=== PATIENT | female | born 1980 | race African-American/Black ===

== ENCOUNTER 2019-08-27 21:32 | Emergency (ER) | payer MEDICAID ==
[~2019-08-27] VITALS: Ht 167.6 cm; Wt 96.0 kg
[2019-08-27] MEDS ORDERED: MORPHINE SULFATE 4 MG/ML CPJ (NOT FOR IM USE) IV STA (21:55)
[2019-08-27] MEDS ORDERED: SODIUM CHLORIDE 0.9% 1,000 ML IV ONE (21:55)
[2019-08-27] MEDS ORDERED: ONDANSETRON HCL 4MG/2ML INJ IV STA (21:55)
[2019-08-27 23:06] LABS: BASOPHILS % 0.4 % (0.0-2.0); EOSINOPHILS % 0.1 % (0.0-5.0); HEMATOCRIT. 38.9 % (36.0-48.0); HEMOGLOBIN. 13.3 g/dL (12.0-16.0); LYMPHOCYTES % 17.2 % (20.0-50.0); MEAN CORPUSCULAR HEMOGLOBIN 30.4 pg (28.0-32.0); MEAN CORPUSCULAR VOLUME 89.2 fL (81.0-99.0); MEAN PLATELET VOLUME 11.2 fl (7.4-10.4); MONOCYTES % 2.8 % (2.0-8.0); NEUTROPHILS % 79.5 % (40.0-76.0); PLATELET 190 x1000/uL (130-400); RED BLOOD CELL COUNT 4.36 mill/uL (4.2-5.4); RED CELL DISTRIBUTION WIDTH 14.3 % (11.6-14.6)
[2019-08-27 23:10] LABS: CHLORIDE 122 mEq/L (98-107)
[2019-08-27] MEDS ORDERED: METOCLOPRAMIDE HCL 10MG/2ML VIAL IV ONE (23:45)
[2019-08-28] MEDS ORDERED: MORPHINE SULFATE 4 MG/ML CPJ (NOT FOR IM USE) IV ONE (00:45)
[2019-08-28 00:55] LABS: CLARITY URINE CLOUDY (CLEAR); COLOR URINE YELLOW (YELLOW); KETONES URINE 1+ (NEGATIVE); LEUKOCYTE ESTERASE URINE NEGATIVE (NEGATIVE); NITRITE URINE NEGATIVE (NEGATIVE); OCCULT BLOOD URINE NEGATIVE (NEGATIVE); PH URINE >=9.0 (4.5-8.0); PROTEIN URINE 1+ (NEGATIVE); SPECIFIC GRAVITY URINE 1.023 (1.005-1.030)
[2019-08-28 01:02] LABS: HCG SCREEN NEGATIVE
[2019-08-28] MEDS ORDERED: ONDANSETRON HCL 4MG/2ML INJ IV PRN (05:36)
[2019-08-28 10:52] VITALS: BP 122/69
== END 2019-08-28 11:18 | disposition left against medical advice (07) ==
LOC: ER 21:32 → EDBEDREQ 08-28 00:40 → EDBEDREQTM 08-28 00:40 → ER 08-28 11:18 → CANBEDREQ 08-28 16:09
DX: E11.43 Type 2 diabetes mellitus with diabetic autonomic (poly)neuropathy (principal); K31.84 Gastroparesis; E87.2 Acidosis; F12.10 Cannabis abuse, uncomplicated; Z88.0 Allergy status to penicillin
CPT/HCPCS: 36415; 80053; 81003; 83605; 83690; 84703; 85025; 85610; 96361; 96374; 96375; 96376; 99285; J2270; J2405; J2765; J7030

== ENCOUNTER 2024-07-12 06:58 | Emergency (ER) | payer MEDICAID ==
[~2024-07-12] VITALS: Ht 165.1 cm; Wt 68.0 kg
[2024-07-12 07:00] VITALS: BP 106/66; PULSE 63; RESP 14; TEMP 36.7; O2SAT 100
== END 2024-07-12 07:14 | disposition left against medical advice (07) ==
LOC: ER 06:58
DX: R10.84 Generalized abdominal pain (principal); Z53.21 Procedure and treatment not carried out due to patient leaving prior to being seen by health care provider

== ENCOUNTER 2024-07-20 16:34 | Emergency (ER) | payer MEDICAID, OTHER ==
[~2024-07-20] VITALS: Ht 167.6 cm; Wt 70.0 kg
[2024-07-20 16:35] VITALS: BP 121/60; PULSE 92; RESP 18; TEMP 36.9; O2SAT 99
== END 2024-07-20 17:39 | disposition left against medical advice (07) ==
LOC: ER 16:34
DX: R10.9 Unspecified abdominal pain (principal); Z53.21 Procedure and treatment not carried out due to patient leaving prior to being seen by health care provider

== ENCOUNTER 2024-08-25 12:05 | Emergency (ER) | payer MEDICAID ==
[~2024-08-25] VITALS: Ht 165.1 cm; Wt 75.0 kg
[~2024-08-25 12:05] MED LIST: HYDR50TA40 MT; ONDA4TAB50 MT
[2024-08-25 12:14] VITALS: BP 99/54; PULSE 61; RESP 18; TEMP 36.7; O2SAT 100
[2024-08-25] MEDS ORDERED: ONDANSETRON 4MG ODT PO ONE (12:45)
[2024-08-25] MEDS ORDERED: MORPHINE SULFATE 4 MG/ML INJ (FOR IV/IM USE) IV ONE (12:45)
[2024-08-25] MEDS ORDERED: PANTOPRAZOLE SODIUM 40 MG/VIAL IV ONE (12:45)
[2024-08-25] MEDS ORDERED: METOCLOPRAMIDE HCL 10MG/2ML VIAL IV ONE (12:45)
[2024-08-25] MEDS ORDERED: SODIUM CHLORIDE 0.9% 1,000 ML IV ONE (12:45)
[2024-08-25] MEDS ORDERED: KETOROLAC 15MG/ML VIAL IV ONE (12:45)
== END 2024-08-25 13:00 | disposition left against medical advice (07) ==
LOC: ER 12:59
DX: G89.29 Other chronic pain (principal); R10.9 Unspecified abdominal pain; R11.10 Vomiting, unspecified; I10 Essential (primary) hypertension; Z88.0 Allergy status to penicillin; Z79.899 Other long term (current) drug therapy
CPT/HCPCS: 99283; Z7610; J7030

== ENCOUNTER 2024-09-05 11:07 | Emergency (ER) | payer MEDICAID ==
[~2024-09-05] VITALS: Ht 157.5 cm; Wt 69.0 kg
[2024-09-05 11:10] VITALS: PULSE 80; RESP 17; O2SAT 97
[2024-09-05 11:17] VITALS: BP 105/41; TEMP 37.1; O2SAT 98
[2024-09-05] MEDS ORDERED: ONDANSETRON 4MG ODT PO ONE (13:30)
== END 2024-09-05 14:13 | disposition left against medical advice (07) ==
LOC: ER 11:22
DX: R10.30 Lower abdominal pain, unspecified (principal); R11.2 Nausea with vomiting, unspecified; I10 Essential (primary) hypertension; Z53.21 Procedure and treatment not carried out due to patient leaving prior to being seen by health care provider

== ENCOUNTER 2024-09-24 14:55 | Emergency (ER) | payer MEDICAID ==
[~2024-09-24] VITALS: Ht 167.6 cm; Wt 66.0 kg
[2024-09-24 14:58] VITALS: BP 125/76; PULSE 77; RESP 16; TEMP 36.7; O2SAT 98
== END 2024-09-24 17:09 | disposition left against medical advice (07) ==
LOC: ER 14:55
DX: R11.2 Nausea with vomiting, unspecified (principal); Z53.21 Procedure and treatment not carried out due to patient leaving prior to being seen by health care provider

== ENCOUNTER 2024-10-07 16:23 | Emergency (ER) | payer MEDICAID ==
[~2024-10-07] VITALS: Ht 167.6 cm; Wt 70.0 kg
[2024-10-07 16:28] VITALS: BP 107/54; TEMP 37.2; O2SAT 100
[2024-10-07 16:29] VITALS: PULSE 69; RESP 16; O2SAT 100
[2024-10-07] MEDS ORDERED: SODIUM CHLORIDE 0.9% 1,000 ML IV ONE (17:00)
== END 2024-10-07 17:31 | disposition left against medical advice (07) ==
LOC: ER 16:23
DX: R10.9 Unspecified abdominal pain (principal); I10 Essential (primary) hypertension; K31.84 Gastroparesis; Z90.49 Acquired absence of other specified parts of digestive tract; Z53.29 Procedure and treatment not carried out because of patient's decision for other reasons; Z88.0 Allergy status to penicillin
CPT/HCPCS: 99281; 99282; J7030

== ENCOUNTER 2024-12-05 13:54 | Emergency (ER) | payer MEDICAID ==
[~2024-12-05] VITALS: Ht 167.6 cm; Wt 65.0 kg
[~2024-12-05 13:54] MED LIST changes: +METO-293 MT; +PROT40 MT
[2024-12-05 14:00] VITALS: O2SAT 97
[2024-12-05 15:19] VITALS: BP 133/76; PULSE 100; RESP 16; TEMP 37.6; O2SAT 99
[2024-12-05] MEDS ORDERED: METH4TAB95 MT (21:48)
[2024-12-05] MEDS ORDERED: AZIT500T8 MT (21:48)
== END 2024-12-05 16:00 | disposition left against medical advice (07) ==
LOC: ER 13:54
DX: R05.9 Cough, unspecified (principal); Z53.21 Procedure and treatment not carried out due to patient leaving prior to being seen by health care provider
CPT/HCPCS: 99281

== ENCOUNTER 2024-12-05 16:07 | Emergency (ER) | payer MEDICAID ==
[~2024-12-05] VITALS: Ht 162.6 cm; Wt 77.0 kg
[2024-12-05 16:25] VITALS: O2SAT 95
[2024-12-05 20:52] LABS: INFLUENZA TYPE A Presumptive Negative (Pres. Neg.)
[2024-12-05 20:53] LABS: INFLUENZA TYPE B Presumptive Negative (Pres. Neg.)
[2024-12-05] MEDS ORDERED: DEXAMETHASONE 1 MG/ML ORAL SYR PO ONE (21:00)
[2024-12-05] MEDS ORDERED: METH4TAB95 MT (21:48)
[2024-12-05] MEDS ORDERED: AZIT500T8 MT (21:48)
[2024-12-05] MEDS: KETOROLAC 15MG/ML VIAL IM ONE (22:37)
[2024-12-05] MEDS: ACETAMINOPHEN 325MG TABLET PO ONE (22:37)
[2024-12-05] MEDS: DEXAMETHASONE 4MG TABLET PO SCH (22:38)
[2024-12-05 22:40] VITALS: BP 139/82; PULSE 110; RESP 18; TEMP 37.1; O2SAT 97
== END 2024-12-05 22:47 | disposition home or self-care (01) ==
LOC: ER 16:07
DX: B34.9 Viral infection, unspecified (principal); M06.9 Rheumatoid arthritis, unspecified; Z20.822 Contact with and (suspected) exposure to COVID-19; Z79.899 Other long term (current) drug therapy; Z90.49 Acquired absence of other specified parts of digestive tract; Z88.0 Allergy status to penicillin
CPT/HCPCS: 99284; 71045; 87426; 87804 ×2; 96372; J1885; J8540

== ENCOUNTER 2024-12-25 11:29 | Inpatient (IN) | payer MEDICAID, OTHER ==
[~2024-12-25] VITALS: Ht 165.1 cm; Wt 79.8 kg
[~2024-12-25 11:29] MED LIST changes: +AZIT500T8 MT; +METH4TAB95 MT
[2024-12-25 11:41] VITALS: O2SAT 100
[2024-12-25] MEDS: SODIUM CHLORIDE 0.9% 1,000 ML IV ONE (12:52)
[2024-12-25] MEDS: FAMOTIDINE 20MG/2ML VIAL IV ONE (12:52)
[2024-12-25] MEDS: METOCLOPRAMIDE HCL 10MG/2ML VIAL IV ONE (12:53)
[2024-12-25 13:14] LABS: CLARITY URINE TURBID (CLEAR); COLOR URINE YELLOW (YELLOW); GLUCOSE URINE NEGATIVE (NEGATIVE); KETONES URINE NEGATIVE (NEGATIVE); LEUKOCYTE ESTERASE URINE NEGATIVE (NEGATIVE); NITRITE URINE NEGATIVE (NEGATIVE); OCCULT BLOOD URINE NEGATIVE (NEGATIVE); PH URINE 8.0 (4.5-8.0); PROTEIN URINE TRACE (NEGATIVE); SPECIFIC GRAVITY URINE 1.020 (1.005-1.030); UROBILINOGEN URINE 1.0 E.U./dL (0.2-1.0)
[2024-12-25 13:24] LABS: BASOPHILS % 0.5 % (0.0-2.0); EOSINOPHILS % 0.1 % (0.0-5.0); HEMATOCRIT. 39.2 % (36.0-48.0); HEMOGLOBIN. 12.7 g/dL (12.0-16.0); LYMPHOCYTES % 19.6 % (20.0-50.0); MEAN PLATELET VOLUME 9.6 fl (7.4-10.4); MONOCYTES % 4.7 % (2.0-8.0); NEUTROPHILS % 75.1 % (40.0-76.0); PLATELET 288 x1000/uL (130-400); RED BLOOD CELL COUNT 4.49 mill/uL (4.2-5.4); RED CELL DISTRIBUTION WIDTH 17.8 % (11.6-14.6)
[2024-12-25 13:38] LABS: BACTERIA URINE 2+; RBC URINE NONE SEEN /hpf (0-2); WBC URINE 0-2 /hpf (0-2); YEAST URINE NONE SEEN
[2024-12-25 13:39] LABS: SQUAMOUS EPITHELIAL CELL URINE RARE /lpf (RARE/1+)
[2024-12-25 13:45] LABS: ETHANOL BLOOD < 10 mg/dL (<10); HCG SCREEN NEGATIVE
[2024-12-25 13:47] LABS: ASPARTATE AMINOTRANSFERASE 84 IU/L (<34); BILIRUBIN DIRECT 0.2 mg/dL (<=3.0); BILIRUBIN TOTAL 0.6 mg/dL (0.1-1.0); PROTEIN TOTAL 8.0 g/dL (6.0-8.3)
[2024-12-25] MEDS: KETOROLAC 30MG/ML VIAL IV SCH (13:49)
[2024-12-25] MEDS: DICYCLOMINE HCL 10MG/ML 2ML VIAL IM SCH (15:05)
[2024-12-25] MEDS: HALOPERIDOL LACTATE 5MG/ML VIAL IM ONE (16:21)
[2024-12-25 16:34] LABS: CREATININE 0.8 mg/dL (0.6-1.0); UREA NITROGEN BLOOD 9 mg/dL (9-23)
[2024-12-25] MEDS ORDERED: IPRATROPIUM/ALBUTEROL 0.5-3(2.5)MG/3ML NEB HHN PRN (18:45)
[2024-12-25] MEDS ORDERED: CLONIDINE 0.1MG TABLET PO PRN (18:45)
[2024-12-25] MEDS ORDERED: LORAZEPAM 2MG/ML UD SYRINGE IV PRN (18:45)
[2024-12-25] MEDS: HYDROCODONE/ACETAMINOPHEN 5/325MG TABLET PO SCH (19:13)
[2024-12-25] MEDS: SODIUM CHLORIDE 0.9% 1,000 ML IV SCH (19:14)
[2024-12-25] MEDS ORDERED: PANTOPRAZOLE SODIUM 40 MG/VIAL IV SCH (19:30)
[2024-12-25] MEDS ORDERED: ONDANSETRON 4MG ODT PO PRN (19:30)
[2024-12-25] MEDS ORDERED: HYDRALAZINE HCL 50MG TABLET PO SCH (19:30)
[2024-12-25 20:00] VITALS: BP 138/67; PULSE 62; RESP 18; TEMP 36.4; O2SAT 100
[2024-12-25] MEDS: ENOXAPARIN 40MG/0.4ML SYR SUBCUT SCH (21:00)
[2024-12-25] MEDS: ACETAMINOPHEN 325MG TABLET PO PRN (23:12)
[2024-12-25] MEDS: ONDANSETRON HCL 4MG/2ML INJ IV PRN (23:12)
[2024-12-25] MEDS: HYDRALAZINE HCL 50MG TABLET PO SCH (23:31)
[2024-12-26] VITALS: BP 153/78; PULSE 55; RESP 18; TEMP 36.4; O2SAT 100
[2024-12-26 00:07] LABS: TROPONIN I HIGH SENSITIVITY 6 ng/L (3.0-34)
[2024-12-26 04:00] VITALS: BP 150/70; PULSE 67; RESP 20; TEMP 36.8; O2SAT 100
[2024-12-26 04:02] VITALS: BP 128/60; PULSE 81; RESP 18; TEMP 36.4736
[2024-12-26 08:50] VITALS: BP 162/79; PULSE 71; RESP 18; TEMP 36.6; O2SAT 100
[2024-12-26] MEDS ORDERED: METOCLOPRAMIDE HCL 10MG TABLET PO SCH (09:00)
== END 2024-12-26 08:53 | disposition left against medical advice (07) | DRG 241 ==
LOC: ER 11:29 → EDBEDREQ 16:51 → EDBEDREQTM 16:51 → 6EST 19:44
PROVIDERS: ADMIT Hospitalist; ATTEND Hospitalist
DX: K29.70 Gastritis, unspecified, without bleeding (principal); E11.43 Type 2 diabetes mellitus with diabetic autonomic (poly)neuropathy; I10 Essential (primary) hypertension; M06.9 Rheumatoid arthritis, unspecified; F17.210 Nicotine dependence, cigarettes, uncomplicated; R11.16 Cannabis hyperemesis syndrome; K31.84 Gastroparesis; K57.30 Diverticulosis of large intestine without perforation or abscess without bleeding; G89.29 Other chronic pain; Z88.0 Allergy status to penicillin; Z91.199 Patient's noncompliance with other medical treatment and regimen due to unspecified reason; Z53.29 Procedure and treatment not carried out because of patient's decision for other reasons
CPT/HCPCS: 36415; 74176; 80048; 80076; 80320; 81003; 82550; 84145; 84484; 84703; 85025; 96361; 96372; 96374; 96375; 99291; A4606; J0500; J1308; J1630; J1650; J1885; J2405; J2765; J7030; G0480

== ENCOUNTER 2024-12-26 14:35 | Emergency (ER) | payer MEDICAID ==
[~2024-12-26] VITALS: Ht 165.1 cm; Wt 75.0 kg
[2024-12-26 15:00] VITALS: TEMP 36.7; O2SAT 98
[2024-12-26] MEDS: DICYCLOMINE HCL 10MG/ML 2ML VIAL IM SCH (15:15)
[2024-12-26] MEDS: ONDANSETRON 4MG ODT PO SCH (15:20)
[2024-12-26] MEDS: MAGNESIUM/ALUMINUM HYDROXIDE/SIMETHICONE 30ML UDC PO SCH (15:20)
[2024-12-26] MEDS: FAMOTIDINE 20MG TABLET PO SCH (15:20)
[2024-12-26] MEDS ORDERED: KETOROLAC 30MG/ML VIAL IM SCH (16:00)
[2024-12-26 16:20] LABS: BASOPHILS % 0.5 % (0.0-2.0); EOSINOPHILS % 0.0 % (0.0-5.0); HEMATOCRIT. 34.7 % (36.0-48.0); HEMOGLOBIN. 11.3 g/dL (12.0-16.0); LYMPHOCYTES % 21.0 % (20.0-50.0); MEAN PLATELET VOLUME 9.2 fl (7.4-10.4); MONOCYTES % 4.8 % (2.0-8.0); NEUTROPHILS % 73.7 % (40.0-76.0); PLATELET 222 x1000/uL (130-400); RED BLOOD CELL COUNT 3.96 mill/uL (4.2-5.4); RED CELL DISTRIBUTION WIDTH 17.6 % (11.6-14.6)
[2024-12-26 16:30] LABS: CREATININE 1.0 mg/dL (0.6-1.0); UREA NITROGEN BLOOD 7 mg/dL (9-23)
[2024-12-26 16:32] LABS: ASPARTATE AMINOTRANSFERASE 25 IU/L (<34); BILIRUBIN DIRECT 0.2 mg/dL (<=3.0)
[2024-12-26 16:33] LABS: BILIRUBIN TOTAL 0.7 mg/dL (0.1-1.0); PROTEIN TOTAL 6.5 g/dL (6.0-8.3)
[2024-12-26 16:34] LABS: HCG SCREEN NEGATIVE
[2024-12-26] MEDS: KETOROLAC 30MG/ML VIAL IM SCH (16:49)
[2024-12-26] MEDS: POTASSIUM CHLORIDE 20MEQ/PACKET PO SCH (17:27)
[2024-12-26 17:34] VITALS: BP 161/72; PULSE 82; RESP 16; O2SAT 99
== END 2024-12-26 18:28 | disposition home or self-care (01) ==
LOC: ER 14:35
DX: K31.84 Gastroparesis (principal); F12.10 Cannabis abuse, uncomplicated; Z88.0 Allergy status to penicillin; Z90.49 Acquired absence of other specified parts of digestive tract; Z79.899 Other long term (current) drug therapy
CPT/HCPCS: 99284; 80076; 80048; 84703; 83690; 85025; 36415; 96372; J1885; Q0162; J0500

== ENCOUNTER 2025-02-05 16:49 | Emergency (ER) | payer MEDICAID ==
[~2025-02-05] VITALS: Ht 167.6 cm; Wt 64.0 kg
[2025-02-05 16:51] VITALS: O2SAT 98
[2025-02-05 16:58] VITALS: BP 106/49; PULSE 84; RESP 16; TEMP 36.9; O2SAT 100
== END 2025-02-05 17:28 | disposition home or self-care (01) ==
LOC: ER 16:49
DX: H61.23 Impacted cerumen, bilateral (principal); M19.90 Unspecified osteoarthritis, unspecified site; Z79.899 Other long term (current) drug therapy; Z87.19 Personal history of other diseases of the digestive system; Z88.0 Allergy status to penicillin; Z90.49 Acquired absence of other specified parts of digestive tract
CPT/HCPCS: 99282